=== PATIENT | female | born 1990 | race Caucasian/White ===

== ENCOUNTER 2017-11-19 19:05 | Emergency (ER) | payer BC ==
[~2017-11-19] VITALS: Ht 162.6 cm; Wt 75.6 kg
[2017-11-19] MEDS ORDERED: TETanus/Pertussis (Acell)/Diphther VAC/PF (Tdap-Adult) 0.5ml syringe IM ONE (20:50)
[2017-11-19] MEDS ORDERED: BUPIVAcaine/PF 2.5 mg/ml (0.25%) 30ml vial IJ ONE (20:50)
[2017-11-19 22:33] VITALS: BP 113/68
== END 2017-11-19 22:36 | disposition home or self-care (01) ==
LOC: ER 19:06
DX: S61.411A Laceration without foreign body of right hand, initial encounter (principal); W45.8XXA Other foreign body or object entering through skin, initial encounter; Y93.89 Activity, other specified; Y92.89 Other specified places as the place of occurrence of the external cause; Y99.9 Unspecified external cause status
CPT/HCPCS: 12001; 90471; 90715; 99284; A6449; J3490